=== PATIENT | male | born 1950 | race African-American/Black ===

== ENCOUNTER → 2019-01-03 06:15 | Day surgery (SDC) | payer MEDICARE, BC ==
[2018-12-30 13:19] LABS: BASOPHILS 0.1 % (0-2); EOSINOPHILS 1.4 % (0-7); HEMATOCRIT 39.3 % (42.0-54.0); HEMOGLOBIN 12.6 g/dL (13.5-17.5); IMMATURE GRANULOCYTES 0.3 % (0-5); MCH 25.9 pg (26.0-34.0); MCHC 32.1 g/dL (31.0-37.0); MCV 80.7 fL (80.0-100.0); MEAN PLATELET VOLUME 9.2 fL (7.4-10.4); MONOCYTES 8.5 % (2-11); NEUTROPHILS 62.7 % (40-80); PLATELET COUNT 153 10x3/uL (130-400); RBC 4.87 10x6/uL (4.20-6.10); RDW 15.6 % (11.5-14.5); WBC 7.7 10x3/uL (4.8-10.8)
[2018-12-30 13:26] LABS: ANION GAP 8.2 mmol/L (8-16); CALCIUM 10.3 mg/dL (8.5-10.1); CARBON DIOXIDE 31.7 mmol/L (21.0-32.0); CREATININE - SERUM 1.5 mg/dL (0.6-1.3); POTASSIUM - SERUM 3.9 mmol/L (3.5-5.1)
[2018-12-30 13:30] LABS: INR 1.24 (0.85-1.17); PROTIME 15.1 SECONDS (11.6-15.0)
[~2019-01-03] VITALS: Ht 190.5 cm; Wt 95.7 kg
[~2019-01-03 06:15] MED LIST: BENTYL10 MG PO; CELLCEPT250 MG PO; ELIQUIS5 MG PO; FUROSEMIDE40 MG PO; GLUCOTROL 5 MG T5 MG; K-DUR20 MEQ PO; LISINOPRIL40 MG PO; MAG-OX 400 MG400 MG PO; MAG-OXIDE400 MG PO; NORVASC10 MG PO; PREDNISONE5 MG PO; ROCALTROL0.25 MCG PO; TACROLIMUS ANHYD1 MG PO; TOPROL XL100 MG PO; ULTRAM50 MG PO; VITAMIN D3400 UNI1 PO
[2019-01-03 06:57] VITALS: BP 142/70; Ht 190.5 cm; Wt 95.7 kg
--- NOTE | 2019-01-03 14:43 | OP ---
PATIENT NAME: KANDACE PENNINGTON MEDICAL RECORD: [id number] :52 LOCATION:D.OPS ADMISSION DATE: SURGEON: CANDIDO CAPONE MD DATE OF OPERATION: 01/03/2019 REFERRED BY: Remberto Scott MD PREOPERATIVE DIAGNOSES: 1. Chronic kidney disease status post successful kidney transplant. 2. Aneurysmal AV fistula, left arm. 3. Pain secondary to AV fistula, left arm. POSTOPERATIVE DIAGNOSES: 1. Chronic kidney disease status post successful kidney transplant. 2. Aneurysmal AV fistula, left arm. 3. Pain secondary to AV fistula, left arm. OPERATION PERFORMED: Ligation of AV fistula and excision of aneurysmal segment. SURGEON: Candido Capone MD ANESTHESIA: General per DINING ROOM ATTENDANT. PREOPERATIVE NOTE: Mr. Pennington is a very nice 68-year-old -[place] male successful kidney transplant. He still has a large patent left brachiocephalic AV fistula, which is aneurysmal and causes him discomfort. Dr. Scott referred him to me for ligation. I have discussed ligation and excision with the patient and he would like to have excision rather than being left with large hard masses from thrombosis of the aneurysm. DESCRIPTION OF PROCEDURE: Under general anesthesia in supine position, the patient's arm was prepped and draped in sterile manner. I reopened the transverse antecubital incision and sharply dissected the anastomosis and identified the proximal brachial artery and the distal brachial artery and at a point approximately a centimeter and a half proximal to that the fistula was dissected circumferentially and ligated doubly with 2-0 silk. I then dissected the fistula further proximally with sharp and blunt dissection. I then made a long incision directly over the fistula of the aneurysmal segment in the upper arm and with blunt and sharp dissection exposed and fully mobilized this to about the junction of the upper and middle thirds of the arm. The fistula at that point was doubly ligated with 2-0 silk, transected and the aneurysmal segment removed and discarded. The wound was irrigated with gentamicin solution and infiltrated with 0.25% Marcaine with epinephrine. No drain was used. The wound was closed with interrupted inverted 3-0 Vicryl and running intracuticular Stratafix 4-0 suture. The incisions were sealed with Dermabond glue and dressed with Maxorb Ag, Tegaderm, and Cavilon skin prep and over this, a layer of 4 x 4s, and then Coban compression dressing was applied. The patient was awakened and in stable condition taken to the recovery room where an ice pack was applied to his arm. He will be allowed to go home today and come back to see me in the office for dressing change and wound check next week. Hopefully, we can leave the original dressing intact until that time and keep it clean and dry. He will resume all of his home medications and that will include resuming his Plavix on 01/05/2019. OPERATIVE REPORT [id number] PENNINGTONKANDACE Jain He will continue his diabetic diet and increase activities as tolerated. Along with using ice on his arm, I have advised that he elevate the arm when possible higher than the level of his heart at least when lying in bed or otherwise recumbent that should help him be more comfortable and also reduce swelling and potentially reduce bleeding and oozing in the wound. TRANSINT:[id number] Voice Confirmation ID: [id number] DOCUMENT ID: [id number] CANDIDO CAPONE MD at 1443 CC: REMBERTO SCOTT MD and SHANTELL ARIZA MD [id number] DICTATION DATE: 01/03/19 0954 DIRECTOR OF RESERVATIONS: 01/03/19 1157 [facility] [address] [place] [address]
== END | disposition home or self-care (01) ==
LOC: D.OPS 06:15 → D.PAN 08:00 → D.OPS 08:00
PROVIDERS: ATTEND Surgery
DX: T82.898A Other specified complication of vascular prosthetic devices, implants and grafts, initial encounter (principal); Y83.9 Surgical procedure, unspecified as the cause of abnormal reaction of the patient, or of later complication, without mention of misadventure at the time of the procedure; N18.9 Chronic kidney disease, unspecified; Z94.0 Kidney transplant status; T82.848A Pain due to vascular prosthetic devices, implants and grafts, initial encounter